=== PATIENT | male | born 1960 | race Caucasian/White ===

== ENCOUNTER 2022-04-30 12:18 | Emergency (ER) | payer MEDICAID ==
[~2022-04-30] VITALS: Ht 167.6 cm; Wt 108.1 kg
--- NOTE | 2022-04-30 12:18 | NUR ---
Pt presented to the ER, accompanied by the , with c/o catatonia and "abnormal behavior" per pt's . Pt does not respond when asked basic questions. Afebrile. Pt has a swelling and bruising on the left little finger. Seen by HORTENSIA for MSE. Addendum: 04/30/22 at 1234 by WONG Wrong patient to document.
[2022-04-30] MEDS ORDERED: FAMO-132 PO ×2 (12:49→13:00)
[2022-04-30] MEDS ORDERED: HYDR453.3 TP ×2 (12:49→13:00)
[2022-04-30 13:09] VITALS: BP 128/74
== END 2022-04-30 13:10 | disposition home or self-care (01) ==
LOC: ER 12:23
DX: L85.3 Xerosis cutis (principal); L29.9 Pruritus, unspecified; I10 Essential (primary) hypertension; E78.5 Hyperlipidemia, unspecified; E11.9 Type 2 diabetes mellitus without complications; F41.9 Anxiety disorder, unspecified; G47.00 Insomnia, unspecified
CPT/HCPCS: A4663